=== PATIENT | female | born 1995 | race Two or more races ===

== ENCOUNTER 2022-08-02 19:27 | Emergency (ER) | payer MEDICAID ==
[~2022-08-02] VITALS: Ht 180.3 cm; Wt 154.6 kg
[2022-08-02 20:50] VITALS: BP 133/67
[2022-08-02] MEDS ORDERED: IBUP-1986 PO (21:08)
[2022-08-02] MEDS ORDERED: ketorolac trometh inj. 60 MG/2 ML VIAL IM ONE (21:10)
== END 2022-08-02 22:18 | disposition home or self-care (01) ==
LOC: ER 19:28
DX: M25.562 Pain in left knee (principal)
CPT/HCPCS: 29505; 73564; 96372; 99283; J1885; A6449

== ENCOUNTER 2024-03-22 06:48 | Emergency (ER) | payer MEDICAID ==
[~2024-03-22] VITALS: Ht 180.3 cm; Wt 159.1 kg
[~2024-03-22 06:48] MED LIST: IBUP-1986 PO
[2024-03-22 07:27] LABS: BASOPHILS % (AUTO) 0.3 % (0-1); EOSINOPHILS # (AUTO) 0.1 X10'3 (0-0.9); EOSINOPHILS % (AUTO) 0.8 % (0-6); HEMATOCRIT 39.9 % (35.0-45.0); HEMOGLOBIN 12.9 g/dl (12.0-16.0); LYMPHOCYTES # (AUTO) 1.6 X10'3 (1.1-4.8); LYMPHOCYTES % (AUTO) 15.3 % (21-51); MEAN CORPUSCULAR HEMOGLOBIN 25.8 PG (27.0-31.0); MEAN CORPUSCULAR HGB CONC 32.4 g/dL (33.0-36.5); MEAN CORPUSCULAR VOLUME 79.7 FL (78-98); MEAN PLATELET VOLUME 7.8 FL (7.4-10.4); MONOCYTES # (AUTO) 0.5 X10'3 (0-0.9); MONOCYTES % (AUTO) 4.6 % (2-12); NEUTROPHILS # (AUTO) 8.4 X10'3 (1.8-7.7); PLATELET COUNT 342 X10'3 (140-440); RED CELL DISTRIBUTION WIDTH 14.8 % (11.5-14.5); WHITE BLOOD COUNT 10.6 X10'3 (4.5-11.0)
[2024-03-22 07:31] LABS: BILIRUBIN,URINE NEGATIVE (Neg); CLARITY,URINE CLOUDY (Clear); GLUCOSE, URINE NEGATIVE (Neg); KETONES,URINE NEGATIVE (Neg); LEUKOCYTE ESTERASE ,URINE TRACE (Neg); NITRITES, URINE NEGATIVE (Neg); OCCULT BLOOD,URINE LARGE (Neg); PH,URINE 6.5 (4.8-8.0); PROTEIN,URINE 30 mg/dl (Neg)
[2024-03-22 07:32] LABS: URINE HCG NEGATIVE (NEG)
[2024-03-22 07:36] LABS: UA COLLECTION TYPE CLN CATCH MIDSTREAM
[2024-03-22 07:36] LABS: ALANINE AMINOTRANSFERASE 25 U/L (12-78); ALBUMIN 3.6 G/DL (3.4-5.0); ALBUMIN/GLOBULIN RATIO 0.6 (1.1-1.5); ALKALINE PHOSPHATASE 108 IU/L (46-116); ANION GAP 10 (8-16); ASPARTATE AMINO TRANSFERASE 26 U/L (10-37); BILIRUBIN,TOTAL 0.5 MG/DL (0.1-1.0); BLOOD UREA NITROGEN 11 MG/DL (7-18); CALCIUM 9.1 MG/DL (8.5-10.1); CHLORIDE 103 MMOL/L (99-107); GLUCOSE 126 MG/DL (70-104); LIPASE 31 U/L (16-77); POTASSIUM 4.3 MMOL/L (3.5-5.1); SODIUM 136 MMOL/L (135-145); TOTAL CARBON DIOXIDE 23.2 MMOL/L (24-32); TOTAL PROTEIN 9.2 G/DL (6.4-8.2); eCRCL 94 ML/MIN; eGFR 67 ML/MIN
[2024-03-22 07:37] LABS: COLOR,URINE DARK YELLOW (Yellow)
[2024-03-22 07:40] LABS: MUCUS STRANDS FEW /LPF (Neg); RBC,URINE TNTC /HPF (0-2); SQUAMOUS EPITHELIAL CELL,UR FEW /LPF (FEW)
[2024-03-22 07:41] LABS: BACTERIA,URINE 1+ /HPF (Neg)
[2024-03-22] MEDS: ketorolac tromethamine 15mg/ml inj. IM ONE (07:44)
[2024-03-22] MEDS ORDERED: METO5TAB85 PO (08:55)
[2024-03-22] MEDS ORDERED: LEVO-65 PO (08:55)
[2024-03-22 09:27] VITALS: BP 133/84; PULSE 87; RESP 14; TEMP 97.9; O2SAT 95
== END 2024-03-22 09:32 | disposition home or self-care (01) ==
LOC: ER 06:49
DX: N39.0 Urinary tract infection, site not specified (principal); N20.0 Calculus of kidney; Z79.1 Long term (current) use of non-steroidal anti-inflammatories (NSAID)
CPT/HCPCS: 36415; 74176; 80053; 81001; 81025; 83690; 85025; 87088; 96372; 99285; J1885

== ENCOUNTER 2025-09-06 17:50 | Inpatient (IN) | payer MEDICAID, OTHER ==
[~2025-09-06] VITALS: Ht 180.3 cm; Wt 154.6 kg
[~2025-09-06 17:50] MED LIST changes: +METO5TAB85 PO
[2025-09-06 18:33] LABS: MEAN PLATELET VOLUME 7.8 FL (7.4-10.4); RED CELL DISTRIBUTION WIDTH 14.0 % (11.5-14.5)
[2025-09-06 18:41] LABS: LEUKOCYTE ESTERASE ,URINE LARGE (Neg); NITRITES, URINE NEGATIVE (Neg); OCCULT BLOOD,URINE MODERATE (Neg)
[2025-09-06 18:46] LABS: UA COLLECTION TYPE CLN CATCH MIDSTREAM
[2025-09-06 18:48] LABS: SQUAMOUS EPITHELIAL CELL,UR FEW /LPF (FEW)
[2025-09-06 18:50] LABS: URINE HCG NEGATIVE (NEG)
[2025-09-06 19:05] LABS: CREATININE 1.23 MG/DL (0.40-0.90); TOTAL CARBON DIOXIDE 25.1 MMOL/L (24-32); eCRCL 75 ML/MIN; eGFR 52 ML/MIN
--- NOTE | 2025-09-06 20:32 | Physician Documentation ---
History of Present Illness ~ Chief Complaint: Flank Pain Stated Complaint: BLADDER PAIN Time Seen by MD: 20:30 Primary Medical Doctor: [facility] MONCADA HPI Patient presents to the emergency room with left-sided flank pain over the last few days. History of urinary tract infections. Positive fevers. Patient endorses dysuria. Medication Reconciliation Allergies: Coded Allergies: No Known Allergies (Unverified , 08/02/22) Scheduled Ibuprofen (Ibuprofen), 1 TAB PO Q8H Metoclopramide HCl (Reglan), 1 TAB PO Q8H Review of Systems ROS All review of systems negative except as per HPI Physical Exam Vital Signs: Temperature: 100.1, Source: Oral, Heart Rate: 95, Respiratory Rate: 10, BP: 118/77, Pulse Oximetry: 98, Weight: 154.550 Oxygen Flow Rate: 0 Physical Exam General: Patient is awake, alert, oriented x4 in no acute distress Head: Normocephalic and atraumatic. Eyes: Conjunctival normal. EOMI. PERRL. ENT: Mucous membranes moist. Neck: Supple, trachea is midline. Chest: Clear to auscultation bilaterally without rales, rhonchi, or wheezes. There is no accessory muscle use or retractions. Cardiac: RRR without murmurs, gallops, or rubs. Abd: Soft, nondistended, nontender, with normoactive bowel sounds. No guarding, rebound, or rigidity. Back: Left-sided CVA tenderness. Progress Results/Orders Results/Orders Orders - KIP GARZA MD Culture Blood (09/06/25 20:34) Ct Abdomen Pelvis (09/06/25 21:00) Page Hospitalist (09/06/25 23:39) Fill Out Med Reconciliation (09/06/25 23:39) Completed Orders - KIP GARZA MD Ceftriaxone/[id number] 1gm (Rocephin 1 (09/06/25 20:30) Normal Saline 1000ml (0.9% Sodium Chlori (09/06/25 20:35) Lacticsepsis (09/06/25 20:34) Procalcitonin (09/06/25 20:35) Ct Abdomen Pelvis (09/06/25 21:00) Medications Received in ER Medications (Trade) Dose Ordered Sig/Berhane Route PRN Reason Start Time Stop Time Status Last Admin Dose Admin Ceftriaxone Sodium 50 ml @ 100 mls/hr ONCE ONCE IV 09/06/25 20:30 09/06/25 20:59 DC 09/06/25 20:44 100 MLS/HR (0.9% sodium chloride (NS) 1000ml IV soln) 2,000 ml ONCE ONCE IVB 09/06/25 20:35 09/06/25 20:36 DC 09/06/25 20:45 1,000 ML Vital Signs 09/06/25 09/06/25 09/06/25 18:02 20:19 20:39 Temp 99.0 100.1 Pulse 98 95 Resp 16 10 10 B/P (MAP) 154/85 118/77 (91) Pulse Ox 98 98 O2 Flow Rate 0 Laboratory Tests Test 09/06/25 18:03 09/06/25 18:21 Urine Specimen Description Cln catch midstream Urine Color Yellow Urine Clarity Cloudy Urine pH 6.5 Urine Specific Webster <=1.005 Urine Protein 30 H Urine Glucose (UA) Negative Urine Ketones Negative Urine Occult Blood Moderate H Urine Nitrite Negative Urine Bilirubin Negative Urine Urobilinogen 2.0 H Urine Leukocyte Esterase Large H Urine RBC 10-20 Urine WBC Tntc H Urine Squamous Epithelial Cells Few Urine Bacteria 3+ Urine Culture Indicated Indicated Volume Urine Centrifuged 10 ml Urine HCG, Qualitative Negative Urine Comment White Blood Count 12.9 H Red Blood Count 4.50 Hemoglobin 12.0 Hematocrit 35.6 Mean Corpuscular Volume 79.2 Mean Corpuscular Hemoglobin 26.6 L Mean Corpuscular Hemoglobin Concent 33.6 Red Cell Distribution Width 14.0 Platelet Count 275 Mean Platelet Volume 7.8 Neutrophils (%) (Auto) 85.9 H Lymphocytes (%) (Auto) 8.1 L Monocytes (%) (Auto) 5.0 Eosinophils (%) (Auto) 0.4 Basophils (%) (Auto) 0.6 Neutrophils # (Auto) 11.1 H Lymphocytes # (Auto) 1.0 L Monocytes # (Auto) 0.7 Eosinophils # (Auto) 0.0 Basophils # (Auto) 0.1 CBC Comment Sodium Level 136 Potassium Level 3.8 Chloride Level 101 Carbon Dioxide Level 25.1 Anion Gap 10 Blood Urea Nitrogen 16 Creatinine 1.23 H Estimated GFR/1.73 m2 52 BUN/Creatinine Ratio 13.0 Glucose Level 114 H Lactic Acid Level 1.1 Calcium Level 8.8 Total Bilirubin 2.2 H Aspartate Amino Transf (AST/SGOT) 37 Alanine Aminotransferase (ALT/SGPT) 25 Alkaline Phosphatase 102 Total Protein 9.6 H Albumin 3.2 L Globulin 6.4 H Albumin/Globulin Ratio 0.5 L Lipase 32 Procalcitonin 0.43 Chemistry Comments Microbiology Date/Time Source Procedure Growth Status 09/06/25 21:02 Blood Iv Draw Blood Culture - Preliminary NEGATIVE (LESS THAN 24 HOURS) Resulted 09/06/25 18:49 Urine Clean Catch Midstream Urine Culture - Preliminary Culture received. Resulted Medical Decision Making Additional information obtaine: old records Findings Patient presents to the emergency room with fever and left flank pain. Differentials include but are not limited to pyelonephritis, kidney stone, musculoskeletal pain, viral syndrome therefore emergent labs and imaging indicated. Patient has not infected kidney stone. Mildly septic. High-risk. IV antibiotics initiated. Urologist consulted. Diff Dx GI Bleed:Consideration: Include: AE fistula, Angiodysplasia, Bleeding diathesis, Blood loss anemia, Carcinoma, Diverticulosis, Diverticulitis, Esophageal varicies, Esophagitis, Gastritis, Gastroenteritis, Inflammatory BD, Margot-Barr syndrome, Meckel's diverticulum, PUD, Other Diff Dx Pain:Considerations: Include: AAA, -Complete, - Incomplete, -Inevitable, -Missed, -Threatened, Abruptio placentae, Angina/[place], Aortic dissection, Appendicitis, Bowel obstruction, Cholangitis, Cholecystitis, Cholelithasis, Constipation, Diverticular disease, Dysmenorrhea, Ectopic , Esophageal rupture, Esophagitis, Gastritis/PUD, Gastroenteritis, GI hemorrhage, Hernia, Hepatitis, Inflammatory BD, Ischemic bowel, Mass, Ovarian cyst/torsion, Pancreatitis, PID, Porphyria, Trauma, intraabdominal, Urinary obstruction, Urinary tract infection, Urolithiasis, Other Diff Dx N/V/D:Considerations: Include: Appendicitis, Bowel obstruction, Dehydration, DKA, Diarrhea - bacterial, Diarrhea - parasitic, Diarrhea - viral, Diverticulitis, Diverticulosis, Drug toxicity, Electrolyte imbalance, Food poisoning, Gastroenteritis, GE reflux, GI bleed, Hepatitis, Hernia, Hypovolemia, Hypotension, Inflammatory BD, Impaction, Malnutrition, Pancreatitis, , PUD, Renal failure, Urolithiasis, Urinary obstruction, UTI, Other Diff Dx Rectal:Considerations: Include: Fissure, Fistula, Foreign body, Impaction, Perirectal abscess, Rectal prolapse, Subcutaneous abscess, Thrombosed hemorrhoid, Ulcer, UTI, Other Departure Admitted to Inpatient Unit: yes, to hospitalist Impression: Primary Impression: Early sepsis Additional Impressions: Urinary tract infection Kidney stone Condition: Guarded Referrals: NO PRIMARY CARE PROVIDER (PCP) Signature Scribe Signature: No scribe Attestation: The note accurately reflects work and decisions made by me.Kip Garza MD 09/06/25 23:52 KIP GARZA MD Sep 06, 2025 20:32
[2025-09-06] MEDS: CefTRIAXone/D5W-Rocephin 1gm 50 ML IV ONE (20:44)
[2025-09-06] MEDS: normal saline 1000ML IV soln IVB ONE (20:45)
--- NOTE | 2025-09-06 21:48 | RADIOLOGY REPORT ---
EXAM: CT CT ABDOMEN PELVIS HISTORY: left flank pain Comparison Study: CT CT ABDOMEN PELVIS on DOS: 03/22/24 Exam Date: 09/06/2025 08:57 PM Radiation Dose Information: CT Dose: CTDI volume is 37 mGy. Dose-length product is 2000 mGy*cm Technique: Multidetector CT of the abdomen and pelvis was performed. Imaging was performed without IV contrast. Axial, coronal and sagittal multiplanar reformats were obtained from the axial data set by the technologist. Findings: Lack of intravenous contrast compromises evaluation of perfusion and for isodense lesions. Lower chest: Clear. Liver: Unremarkable Biliary system: Unremarkable Spleen: Unremarkable Pancreas: Unremarkable. Adrenals: Unremarkable. Kidneys and ureters: 9 mm calculus in the left UVJ with moderate to severe upstream collecting system dilatation. Associated left perinephric stranding. Bowel: No obstruction. Bladder: Unremarkable Reproductive organs: No abnormal mass. Lymph nodes: Unremarkable. Peritoneum: Unremarkable Vessels: Patency not evaluated on this noncontrast study. Bones and soft tissue: No aggressive osseous lesion IMPRESSION: Unchanged obstructing 9 mm calculus (max diameter measured in coronal dimension) in the left UVJ causing persistent moderate to severe upstream collecting system dilatation.
[2025-09-07] VITALS (7 sets, daily range): BP systolic 116–142; BP diastolic 72–88; PULSE 77–86; RESP 10–18; TEMP 97.7–98.3; O2SAT 95–100
[2025-09-07] MEDS ORDERED: magnesium Cl slow-release 64mg tablet PO PRN (00:20)
[2025-09-07] MEDS ORDERED: potassium Cl 40MEQ/1/2NS 520ml 520 ML IV PRN (00:20)
[2025-09-07] MEDS ORDERED: magnesium hydroxide 30ml (MOM) UD suspension PO PRN (00:20)
[2025-09-07] MEDS ORDERED: magnesium sulf-water 2g/50mL 50 ML IV PRN (00:20)
[2025-09-07] MEDS ORDERED: potassium Cl 20 mEq SR tablet PO PRN ×2 (00:20)
[2025-09-07] MEDS ORDERED: mag hydrox/Alum hydrox/simeth 30ml oral suspension PO PRN (00:20)
[2025-09-07] MEDS ORDERED: HYDROcodone/acetaminophen 10/325mg tab PO PRN (00:20)
[2025-09-07] MEDS ORDERED: magnesium sulf-water 4G/100mL 100 ML IV PRN (00:20)
[2025-09-07] MEDS ORDERED: ondansetron/PF 4mg/2ml inj IV PRN (00:20)
--- NOTE | 2025-09-07 00:29 | HISTORY AND PHYSICAL-Residence ---
History & Physical Providers to CC Resident Creating Document: LANRE POLLOCK RES ~ History of Present Illness Primary Medical Doctor: ЮЛИЯ MONCADA Reason for Admit\Complaint: Left flank pain History of Present Illness This is a 30-year-old female with past medical history of type 2 diabetes comes to the ED with complaints of left flank pain. Patient reports that she has been experiencing left flank pain since the past 3 days, on and off, radiating to the left groin area. Currently she rates the pain as 2/10 in intensity. She describes the pain as shooting type, associated with nausea vomiting, chills, sweating, generalized weakness. Patient says that she threw up around 7 times in the last 3 days. She does report of having mild lower abdominal discomfort. Patient reports she noticed blood in the urine this morning. She also reports having burning micturition but no other complaints of increased frequency, low stream. Patient reports of having similar complaints in March this year, for which she went to the PCP, who prescribed a course of antibiotics. Allergies: Coded Allergies: No Known Allergies (Unverified , 08/02/22) Home Medications Home Medications Active Reglan (Metoclopramide HCl) 5 Mg Tablet 1 Tab PO Q8H 20 Days before food Ibuprofen 800 Mg Tablet 1 Tab PO Q8H 10 Days Past Medical History Past Medical History Diabetes mellitus Patient reports of having diagnosed with a kidney stone last year, which eventually passed out. Past Surgical History Surgical History Comment No other significant surgical history Past Social History Social History Comment Patient denies smoking Drinks alcohol socially Lives at home with her and children No illicit drug use PCP at [facility] [place] All Other Systems: Reviewed and Negative Exam Vitals: Vital Signs Date Time Temp Pulse Resp B/P (MAP) Pulse Ox O2 Delivery O2 Flow Rate FiO2 09/06/25 20:39 10 09/06/25 20:19 100.1 95 98 09/06/25 18:02 0 General: General: Awake, oriented to person, place and time HEENT: Pale conjunctiva, sclerae clear, no icterus, pupil is equal in both sides, reactive to light, no ear discharge, no pharyngeal erythema or an edema. Neck: Supple, no JVD, no lymphadenopathy and thyromegaly. Chest: Normal vesicular breath sounds, no wheezing Cardiovascular: S1-S2 regular sinus rhythm and, regular rate, no gallops, no rubs Abdomen: No visible peristalsis obese, Bowel sounds present on auscultation, soft, no tenderness, no guarding, no rigidity. Extremities: peripheral pulsations are intact on both sides Neurologic: Mental status: alert and conscious, oriented to place, person and time, preserved memory, normal speech. Cranial nerves I-XII: Normal. Motor system: Normal strength Sensory system: Preserved temperature, pain and vibration sensation Cerebellar: No nystagmus, dysdiadochokinesia, normal [id number] testing. Musculoskeletal: No joint swelling, deformities, inflammations, Skin: Warm and dry. Diagnostic Data Last Recorded Lab Results: 09/06/25182009/06/251820 Advance Care Planning Advanced Care plannin - 30 Minutes (Full code) Additional Plan Left flank pain Acute pyelonephritis Acute cystitis Nephrolithiasis Sepsis Patient meeting SIRS criteria Increased WBC count 12.9, procal normal Patient is currently hemodynamically stable. Patient having fevers Patient was given 2 L NS bolus in the ED. Currently on NS 100 cc/hour maintenance fluids Started the patient on ceftriaxone 1 g IV daily Patient on medications for nausea, vomitings and pain CT abdomen pelvis shows- 9 mm calculus in the left UVJ with moderate to severe upstream collecting system dilatation. Associated left perinephric stranding. Urology has been consulted. Awaiting recommendations. UTI- Urine analysis positive for UTI which shows bacteria, WBC, RBC, leukocyte esterase, urine occult blood Awaiting cultures and sensitivity Patient on ceftriaxone 1 g IV daily KATRINA- Prerenal vs postrenal Creatinine 1.23 Urine lytes ordered follow-up Patient on fluids. Disposition- patient currently stable, urology is aware of the patient. Awaiting recommendations. Code Status: Full code DVT Prophylaxis: SubQ heparin Lines/Tubes: PIV Nutrition: Clear liquids Prognosis: Guarded Lanre Pollock PGY-1 Patient evaluated using HIPPA compliant AV device Agree with plan as discussed with the resident Jhony Gilliam MD Date of Service: Sep 07, 2025 Billing Provider: JHONY GILLIAM MD, PREETHI, RES Sep 07, 2025 00:29 JHONY GILLIAM MD Sep 07, 2025 03:29
[2025-09-07] MEDS: normal saline 1000ml 1,000 ML IV SCH (01:06)
[2025-09-07] MEDS ORDERED: SEMA1PEN3 SUBCUT ×2 (02:16→02:45)
[2025-09-07] MEDS: HYDROcodone/acetaminophen 5mg/325mg tablet PO PRN (02:34)
[2025-09-07 05:02] LABS: OSMOLALITY 290.0 MOSM/K (280-300)
[2025-09-07] MEDS: K and/or MAG REPLACEMENT MC SCH (07:52)
[2025-09-07] MEDS: docusate sod 100mg capsule PO SCH (07:52)
[2025-09-07] MEDS: heparin, porcine 5000 units/ml vial SQ SCH (07:53)
--- NOTE | 2025-09-07 13:18 | PROGRESS NOTE- Residence ---
Progress Note - Resident Providers to CC Resident Creating Document: AMADOU MACHUCA RES ~ Antibiotic Timeout Antibiotic Ordered?: Yes Subjective Seen and examined patient at bedside, no overnight symptoms recorded, hemodynamically stable and admits improvement in her pain with pain medication. Consulted humane agent Dr. Gonzalez-he recommended outpatient follow up. Objective Vital Signs Date Time Temp Pulse Resp B/P (MAP) Pulse Ox O2 Delivery O2 Flow Rate FiO2 09/07/25 10:00 97.9 86 10 136/88 (104) 100 Room Air 09/06/25 18:02 0 Result Diagram: 09/08/255 09/08/25 0445 Obese habitus, Awake , alert, and oriented x4 HEENT: Atraumatic, normocephalic, EOMI, anicteric sclera ; pink conjunctiva Neck: Trachea midline. Supple, full range of motion, no JVD Cardiac: Regular rhythm, regular rate with no murmurs all over the precordium. Respiratory: Equal breath sounds bilaterally, no tachypnea, no wheezing ,rub or rales, Chest wall is symmetric and without deformity. Gastrointestinal: Abdomen symmetric, non-distended, soft, mild tenderness present in the right flank pain which is 2/10 intensity with pain medication- nonradiating, normal bowel sounds x4 quadrant, normoactive, no hepatosplenomegaly Musculoskeletal: No pedal edema Neurological: Mental status exam: alert and consciousness, orientation, memory, speech - Cranial nerve test: Cranial nerves 2-12 intact - Motor system: Normal Nutrition, normal tone, Power 5/5, no involuntary movements - Sensory system: Intact - Reflex testing: Biceps, triceps and knee reflexes 2+ - Cerebellar: Normal Skin: Warm and dry Extremities : No Edema, peripheral pulses felt, No deformities Psychiatric:Appropriate mood and affect,No hallucinations or suicidal ideation Advance Care Planning Advanced Care plannin - 30 Minutes Assessment Assessment 30 years old female with history of renal calculi he is currently evaluated right flank pain Plan Plan Left flank pain 2/2 nephrolithiasis Hydroureteronephrosis Sepsis POA Met sirs criteria Patient is hemodynamically stable WBC trending down CT abdomen/pelvis shows-9 mm calculi in left UVJ with moderate to severe upstream collecting system dilatation. Associated left perinephric stranding. Continue IV normal saline 100 cc/hour, pain control Urology Dr. Gonzalez was consulted, who recommended outpatient follow up Follow up with daily labs Urinary tract infection IV ceftriaxone 1 g daily-day 2 Follow up with culture/sensitivity Acute kidney injury likely prerenal Currently on maintenance fluids Creatinine trending down Follow up with spot urine studies, daily labs Disposition-consulted urology , he recommended outpatient follow- patient will be discharged condition stabilizes Code Status: Full code DVT Prophylaxis: SubQ heparin Lines/Tubes: PIV Nutrition: Regular Prognosis: Guarded Amadou Machuca PGY1-Internal Medicine Resident Addendum morbid obesity bmi [id number] Date of Service: Sep 07, 2025 Billing Provider: ABBIE MASON MD Common Visit Codes: [id number] INP/OBS CARE (HIGH), [id number] INP/OBS CARE(HIGH) AMADOU MACHUCA, RES Sep 07, 2025 13:18 ABBIE MASON MD Sep 08, 2025 06:37
[2025-09-07 14:00] LABS: MEAN PLATELET VOLUME 8.0 FL (7.4-10.4); RED CELL DISTRIBUTION WIDTH 14.0 % (11.5-14.5)
[2025-09-07 14:08] LABS: CREATININE 1.11 MG/DL (0.40-0.90); TOTAL CARBON DIOXIDE 25.0 MMOL/L (24-32); eCRCL 84 ML/MIN; eGFR 58 ML/MIN
[2025-09-07] MEDS: CefTRIAXone/D5W-Rocephin 1gm 50 ML IV SCH (22:03)
[2025-09-08 04:56] LABS: MEAN PLATELET VOLUME 7.7 FL (7.4-10.4); RED CELL DISTRIBUTION WIDTH 13.7 % (11.5-14.5)
[2025-09-08 05:23] LABS: CHOL/HDL RATIO 6.0 (0.00-4.99); CREATININE 1.07 MG/DL (0.40-0.90); LDL CHOLESTEROL 107 MG/DL (50-100); TOTAL CARBON DIOXIDE 25.1 MMOL/L (24-32); eCRCL 87 ML/MIN; eGFR 61 ML/MIN
[2025-09-08 07:11] VITALS: BP 127/76; PULSE 69; RESP 16; TEMP 97.6; O2SAT 97
[2025-09-08 10:00] VITALS: BP 123/84; PULSE 74; RESP 18; TEMP 98.5; O2SAT 98
[2025-09-08 10:08] VITALS: BP 123/84; PULSE 74; RESP 18; TEMP 98.5; O2SAT 98
[2025-09-08] MEDS ORDERED: tamsulosin capsule PO ×2 (12:35→12:41)
[2025-09-08] MEDS ORDERED: LEVO750T68 PO (12:35)
--- NOTE | 2025-09-08 19:32 | DISCHARGE SUMMARY-Residence ---
Discharge Summary Providers to CC Resident Creating Document: TEAGANTOÑAMaggieBIANCA SEGURA ~ Discharge Summary Admission Diagnosis: flank pain Admission Diagnosis Comment: Acute pyelonephritis Obstructing renal calculi Hydronephrosis ureters Sepsis present on admission Hospital Course DATE OF ADMISSION: 09/06/2025 DATE OF DISCHARGE: 09/08/2025 Discharge Diagnosis\Comment: Left flank pain 2/2 nephrolithiasis Acute pyelonephritis Hydroureteronephrosis Sepsis POA Operations\Procedures: None Consultants: None Complications: None Condition on DC: Stable New Medications: Levofloxacin (Levofloxacin) 750 Mg Tablet 750 MG PO DAILY for 7 Days, #7 TAB [tamsulosin capsule] () 0.4 MG CAP 0.4 MG PO HS for 30 Days, #30 Continued Medications: Metoclopramide HCl (Reglan) 5 Mg Tablet 1 TAB PO Q8H for 20 Days, #60 TAB 0 Refills before food Semaglutide (Ozempic) 1 Mg/0.75 Ml (4 Mg/3 Ml) Pen.injctr 1 MG SUBCUT Q7D for 30 Days, #3 ML 0 Refills Discontinued Medications: Ibuprofen (Ibuprofen) 800 Mg Tablet 1 TAB PO Q8H for 10 Days, #30 TAB Discharge Summary: History of present illness This is a 30-year-old female with past medical history of type 2 diabetes comes to the ED with complaints of left flank pain. Patient reports that she has been experiencing left flank pain since the past 3 days, on and off, radiating to the left groin area. Currently she rates the pain as 2/10 in intensity. She describes the pain as shooting type, associated with nausea vomiting, chills, sweating, generalized weakness. Patient says that she threw up around 7 times in the last 3 days. She does report of having mild lower abdominal discomfort. Patient reports she noticed blood in the urine this morning. She also reports having burning micturition but no other complaints of increased frequency, low stream. Patient reports of having similar complaints in March this year, for which she went to the PCP, who prescribed a course of antibiotics. Hospital course Patient was admitted with left flank pain since past 3 days which is on and off and radiate to the left groin,Unchanged obstructing 9 mm calculus (max diameter measured in coronal dimension) in the left UVJ causing persistent moderate to severe upstream collecting system dilatation. then patient was started immediatley on IV fluids, IV Abx for pyelopehritis, following day we started patient on Tamsulosin, we consulted who recommonded outpatient followup and on the day of discharge patient reports improvement in her symptoms and recovered sooner than expected and discharged with oral ABx Vital Signs Date Time Temp Pulse Resp B/P (MAP) Pulse Ox O2 Delivery O2 Flow Rate FiO2 09/08/25 11:41 Room Air 0.0 09/08/25 10:08 98.5 74 18 123/84 (97) 98 Laboratory Tests Test 09/07/25 13:43 09/08/25 04:45 White Blood Count 7.6 X10'3 6.0 X10'3 Red Blood Count 4.08 X10'6 4.07 X10'6 Hemoglobin 10.8 g/dl 11.0 g/dl Hematocrit 32.8 % 32.5 % Mean Corpuscular Volume 80.2 FL 79.8 FL Mean Corpuscular Hemoglobin 26.5 PG 27.0 PG Mean Corpuscular Hemoglobin Concent 33.0 g/dL 33.8 g/dL Red Cell Distribution Width 14.0 % 13.7 % Platelet Count 247 X10'3 234 X10'3 Mean Platelet Volume 8.0 FL 7.7 FL Neutrophils (%) (Auto) 78.4 % 69.8 % Lymphocytes (%) (Auto) 11.3 % 17.4 % Monocytes (%) (Auto) 7.9 % 9.3 % Eosinophils (%) (Auto) 1.9 % 3.1 % Basophils (%) (Auto) 0.5 % 0.4 % Neutrophils # (Auto) 5.9 X10'3 4.2 X10'3 Lymphocytes # (Auto) 0.9 X10'3 1.0 X10'3 Monocytes # (Auto) 0.6 X10'3 0.6 X10'3 Eosinophils # (Auto) 0.1 X10'3 0.2 X10'3 Basophils # (Auto) 0.0 X10'3 0.0 X10'3 CBC Comment Sodium Level 140 MMOL/L 138 MMOL/L Potassium Level 3.5 MMOL/L 3.5 MMOL/L Chloride Level 106 MMOL/L 105 MMOL/L Carbon Dioxide Level 25.0 MMOL/L 25.1 MMOL/L Anion Gap 9 8 Blood Urea Nitrogen 14 MG/DL 12 MG/DL Creatinine 1.11 MG/DL 1.07 MG/DL Estimated GFR/1.73 m2 58 ML/MIN 61 ML/MIN BUN/Creatinine Ratio 12.6 11.2 Glucose Level 109 MG/DL 96 MG/DL Calcium Level 8.0 MG/DL 8.4 MG/DL Total Bilirubin 1.4 MG/DL 1.1 MG/DL Aspartate Amino Transf (AST/SGOT) 34 U/L 34 U/L Alanine Aminotransferase (ALT/SGPT) 25 U/L 28 U/L Alkaline Phosphatase 100 IU/L 122 IU/L Total Protein 8.0 G/DL 8.0 G/DL Albumin 2.6 G/DL 2.6 G/DL Globulin 5.4 G/DL 5.4 G/DL Albumin/Globulin Ratio 0.5 0.5 Chemistry Comments Magnesium Level 1.9 MG/DL Triglycerides Level 123 MG/DL Cholesterol Level 144 MG/DL LDL Cholesterol 107 MG/DL HDL Cholesterol 24 MG/DL Cholesterol/HDL Ratio 6.0 Physical Exam Obese habitus, Awake , alert, and oriented x4 HEENT: Atraumatic, normocephalic, EOMI, anicteric sclera ; pink conjunctiva Neck: Trachea midline. Supple, full range of motion, no JVD Cardiac: Regular rhythm, regular rate with no murmurs all over the precordium. Respiratory: Equal breath sounds bilaterally, no tachypnea, no wheezing ,rub or rales, Chest wall is symmetric and without deformity. Gastrointestinal: Abdomen symmetric, non-distended, soft, mild tenderness present in the right flank pain which is 2/10 intensity with pain medication- nonradiating, normal bowel sounds x4 quadrant, normoactive, no hepatosplenomegaly Musculoskeletal: No pedal edema Neurological: Mental status exam: alert and consciousness, orientation, memory, speech - Cranial nerve test: Cranial nerves 2-12 intact - Motor system: Normal Nutrition, normal tone, Power 5/5, no involuntary movements - Sensory system: Intact - Reflex testing: Biceps, triceps and knee reflexes 2+ - Cerebellar: Normal Skin: Warm and dry Extremities : No Edema, peripheral pulses felt, No deformities Psychiatric:Appropriate mood and affect,No hallucinations or suicidal ideation Imaging in hospital CT Abd/Pelvis-Unchanged obstructing 9 mm calculus (max diameter measured in coronal dimension) in the left UVJ causing persistent moderate to severe upstream collecting system dilatation. Discharge instructions Follow up with Urology in a week. Follow up with with PCP in 2weeks, Take Antibiotic levofloaxcin 750mg by mouth for 7 days Take Tamsulosin 0.4mg by mouth for 7 days Sideeffects of tamsuloin include low Bp, dizziness- if it presents stop the medication Come to ED or call 911 if Sever Abdominal, flank pain, or chest pain develops *Problems/Diagnosis: (1) Calculus of kidney Status: Acute Total Time Spent on D/C: Up to 30 Minutes Date of Service: Sep 08, 2025 Billing Provider: ABBIE MASON MD Common Visit Codes: 99611-HRO/OBS DISCH DAY >30min COLTON MACHUCA, RES Sep 08, 2025 18:54 ABBIE MASON MD Sep 09, 2025 07:46
== END 2025-09-08 14:27 | disposition home or self-care (01) | DRG 872 ==
LOC: ER 17:51 → ED HOLD 23:56 → SUR 3N 09-07 01:52
PROVIDERS: ADMIT Internal Medicine; ATTEND Internal Medicine
DX: A41.9 Sepsis, unspecified organism (principal); N13.6 Pyonephrosis; N17.9 Acute kidney failure, unspecified
CPT/HCPCS: 36415; 74176; 80053; 80061; 81001; 81025; 83036; 83605; 83690; 83735; 83930; 84132; 84145; 85025; 87040; 87077; 87081; 87088; 87186; 96365; 99285; G0378; J0696; J1644; J7030